=== PATIENT | female | born 1945 | race Caucasian/White ===

== ENCOUNTER 2017-07-22 18:28 | Emergency (ER) | payer SELFPAY ==
[2017-07-22 18:57] VITALS: BP 107/83; PULSE 91; RESP 16; TEMP 98.7; O2SAT 100
--- NOTE | 2017-07-22 19:11 | ED PDOC ---
Upper Extremity Pain/Injury Time Seen by Provider: 07/22/17 19:02 Chief Complaint (Nursing): Upper Extremity Problem/Injury Chief Complaint (Provider): Laceration to left 2nd digit History Per: Family History/Exam Limitations: no limitations Onset/Duration Of Symptoms: Hrs (x4) Current Symptoms Are (Timing): Still Present Additional Complaint(s): Catalina Dang is a 71-year-old [id number] female who presents to the emergency department for evaluation of laceration to her left index finger, sustained today. Family reports that patient was slicing ribs around 3PM when she accidentally cut herself. Patient was already seen at two urgent care centers and both centers told her to come to ED. Tetanus is not up to date. Of note, patient lives in [place] and is currently her visiting her family. Patient only speaks Vietnamese but her daughter at bedside is translating for patient. PMD: In [place] Past Medical History Reviewed: Historical Data, Nursing Documentation, Vital Signs Vital Signs: Last Vital Signs Temp 98.7 F 07/22/17 18:55 Pulse 91 H 07/22/17 18:55 Resp 16 07/22/17 18:55 BP 107/83 07/22/17 18:55 Pulse Ox 100 07/22/17 18:55 - Medical History PMH: No Chronic Diseases - Surgical History Other surgeries: Right shoulder surgery - Family History Family History: States: No Known Family Hx - Living Arrangements Living Arrangements: With Family - Social History Current smoker - smoking cessation education provided: No Alcohol: None Drugs: Denies - Immunization History Hx Tetanus Toxoid Vaccination: No (not sure of last booster) - Home Medications Home Medications: Ambulatory Orders Medication Instructions Recorded Cefadroxil [Duricef] 500 mg PO BID #28 cap 07/22/17 Ibuprofen [Motrin] 600 mg PO Q6 PRN #15 tab 07/22/17 oxyCODONE/Acetaminophen [Percocet 1 ea PO Q6 PRN #8 tab 07/22/17 5/325 mg Tab] - Allergies Allergies/Adverse Reactions: Allergies Allergy/AdvReac Type Severity Reaction Status Date / Time No Known Allergies Allergy Verified 07/22/17 18:55 Review of Systems ROS Statement: Except As Marked, All Systems Reviewed And Found Negative Musculoskeletal: Positive for: Other (laceration to left hand) Physical Exam - Reviewed Nursing Documentation Reviewed: Yes Vital Signs Reviewed: Yes - Physical Exam Appears: Positive for: Non-toxic, No Acute Distress Skin: Positive for: Normal Color Eye Exam: Positive for: Normal appearance Extremity: Positive for: Other (2 cm diagonal laceration noted to distal aspect of left index finger at DIP with exposure of nerve, tendons and bone noted, there is decreased distal sensation to affected digit, mild active bleeding; additional 2 cm superficial laceration noted to left third digit to dorsal aspect of DIP with no active bleeding or deep structure exposure) Neurologic/Psych: Positive for: Alert, Oriented - ECG O2 Sat by Pulse Oximetry: 100 (RA) Pulse Ox Interpretation: Normal - Other Rad Left hand x-ray X-Ray: Interpreted by Me, Viewed By Me X-Ray Interpretation: comminuted fracture distal aspect of left index finger Medical Decision Making Medical Decision Making: Initial Impression: 71 year old female with laceration to left hand Time: 19:10 Initial Plan: --X-ray of left hand --Tdap 0.5 ml IM --Ancef 1 gm IVPB --Discussed case with plastic surgeon, Dr. Simmons who will come to ED for lac repair Patient lives in [place] and is returning in 11 days. She doesn't have travel insurance and prefers to have repair completed in her country via hand specialist. Dr. Simmons did simple bedside closure of wound but explained to patient the importance of close follow-up given damage to bone, nerves and tendons in the affected digit, which as per Dr. Simmons, can be repaired at a later time if patient chooses. Patient and daughter at bedside verbalized understanding of the need for close follow-up and prefer to follow up when patient returns home to [place]. Prescriptions for ibuprofen, Percocet and Duricef provided as per Dr. Simmons. Scribe Attestation: Documented by Mable Brown, acting as a scribe for Rosa Crain PA-C Provider Scribe Attestation: All medical record entries made by the Scribe were at my direction and personally dictated by me. I have reviewed the chart and agree that the record accurately reflects my personal performance of the history, physical exam, medical decision making, and the department course for this patient. I have also personally directed, reviewed, and agree with the discharge instructions and disposition. Disposition - Clinical Impression Clinical Impression: Open fracture of finger, Requires a booster tetanus - Patient ED Disposition Is Patient to be Admitted: No Counseled Patient/Family Regarding: Studies Performed, Diagnosis, Need For Followup, Rx Given - Disposition Referrals: Jaiden Simmons MD [Medical Doctor] - Disposition: Routine/Home Disposition Time: 20:25 Condition: STABLE Additional Instructions: Take prescription medications as directed. Follow up as soon as possible with hand specialist. Prescriptions: Cefadroxil [Duricef] 500 mg PO BID #28 cap Ibuprofen [Motrin] 600 mg PO Q6 PRN #15 tab PRN Reason: Pain, Moderate (4-7) oxyCODONE/Acetaminophen [Percocet 5/325 mg Tab] 1 ea PO Q6 PRN #8 tab PRN Reason: Pain, Severe (8-10) Instructions: Diphtheria/Acellular Pertussis/Tetanus Booster Vaccine (Tdap) ( Injection), Finger Fracture (ED), Finger Laceration (ED) Forms: [employer] (Tajik)
[2017-07-22] MEDS ORDERED: Bupivacaine 0.5% Inj(30mL) IJ STA (19:13)
[2017-07-22] MEDS ORDERED: ceFAZolin IV 1 gm in Dextrose 1 GM/50 ML BAG IVPB ONE ×2 (19:31→20:00)
[2017-07-22] MEDS ORDERED: Lidocaine 1% Inj (20ml) ONE (19:31)
[2017-07-22] MEDS ORDERED: Povidone Iodine Topical 10% Sol ONE (19:34)
[2017-07-22] MEDS ORDERED: Lidocaine 1% Inj (20ml) IJ STA (19:59)
--- NOTE | 2017-07-23 13:16 | RAD ---
PROCEDURE: Left Hand Radiographs. HISTORY: trauma COMPARISON: None. FINDINGS: BONES: Comminuted oblique intra-articular fracture base of 2nd distal phalanx. No other fracture identified. JOINTS: Normal. No osteoarthritic changes. SOFT TISSUES: Normal. OTHER FINDINGS: None. IMPRESSION: Comminuted oblique intra-articular fracture base of 2nd distal phalanx.
--- NOTE | 2017-07-24 23:34 | OP ---
PROCEDURE DATE: 07/22/2017 SURGEON: Jaiden Simmons MD. PREOPERATIVE DIAGNOSES: As follows: 1. Left index finger 3-cm laceration. 2. Left index finger radial digital nerve laceration. 3. Left index finger open distal phalanx fracture. 4. Left index finger extensor digitorum communis partial tendon laceration. 5. Left middle finger 1.5-cm laceration. 6. Possible left middle finger extensor digitorum communis tendon laceration. POSTOPERATIVE DIAGNOSES: As follows: 1. Left index finger 3-cm laceration. 2. Left index finger radial digital nerve laceration. 3. Left index finger open distal phalanx fracture. 4. Left index finger extensor digitorum communis partial tendon laceration. 5. Left middle finger 1.5-cm laceration. 6. Possible left middle finger extensor digitorum communis tendon laceration. PROCEDURE PERFORMED: As follows: 1. Exploration of left middle finger penetrating wound. 2. Simple repair of 1.5-cm left middle finger laceration. 3. Exploration of left index finger penetrating wound. 4. Debridement of open fracture site of left index finger soft tissue. 5. Simple repair of 3-cm left index finger. 6. Closed treatment with manipulation of left index finger distal phalanx fracture. TYPE OF ANESTHESIA: Regional: 1. Left index finger radial digital nerve block. 2. Left index finger ulnar digital nerve block as well as local to left middle finger. INDICATION FOR PROCEDURE: As follows: This is a 71-year-old right hand dominant female visiting from [place] who is returning to [place] in 11 days who injured her left index finger and third finger while chopping ribs with a very strong knife. She presented with active bleeding to the Emergency Room after initially coming to the Emergency Room, leaving and going to an urgent care clinic and then returning to the Emergency Room. An x-ray done by the ER staff showed a displaced left index finger distal phalanx fracture just distal to its base, but not involving the DIP joint. On physical exam, the patient's left index finger showed paresthesias in the radial aspect of the volar tip. She had good feeling on the left index finger ulnaris tip. She had good feeling on the dorsum. She was able to flex and extend the left index finger DIP indicating grossly intact FDP and EDC tendon. She can flex the PIP indicating an intact FDF tendon. She had a positive Tinel's sign going proximally on the left index finger radial aspect. She had tenderness to the distal phalanx bone. The finger was completely wobbly and unstable and in terms of her left middle finger, there was 1.5-cm laceration on the dorsal radial aspect. She had normal neurovascular and tendon exam. There could have been an underlying extensor digitorum communis partial tendon laceration. I explained to the patient's daughter who spoke [place]ish that I would explore both wounds, irrigate the wounds and close them and splint them. I also warned them that she needs to have definitive repair of the tendon, the bone and the nerve within 2 weeks. Since the patient is going back to [place] in 11 days, I told that her options are to let me irrigate the wound, keep her on antibiotic, splint her and then have it done next week or she can have it done when she returns to [place], but it have to be done within 2 weeks. This was made very clear to the patient and her daughter and they understood this. DESCRIPTION OF PROCEDURE: As follows: A 1% lidocaine was used in the left index finger radial and ulnar digital nerve block as well as local in her left middle finger. After allowing sufficient time for the anesthetic to take effect, the wound was thoroughly irrigated with normal saline and dilute Betadine for several minutes. The area was prepped and draped in the usual clean and sterile manner. In terms of the left middle finger, I made the incision larger with a scissor. I explored the underlying extensor tendon, it was intact. I then closed the 1.5 cm laceration with a running 4-0 nylon suture. I then addressed the left index finger, I placed the tourniquet at the base of the finger which I removed at the end of the case. I made the incision larger to explore. The radial digital nerve and artery were lacerated. The extensor digitorum communis tendon was partially lacerated. There was an open distal phalanx fracture that was extremely unstable. I then closed the skin with a running 4-0 nylon suture as well as interrupted 4-0 nylon. I removed the tourniquet, placed Xeroform on both fingers, Manuelito wrap and splint on the left index finger. After doing this, hemostasis was achieved. I explained to the patient and the patient's daughter again that she needs to have definitive repair and stabilization of the left index finger open distal phalanx fracture as well as radial digital nerve repair and extensor digitorum communis was partially lacerated. This may need to be repaired again within 2 weeks or risk permanent deformity of the hand. The patient was sent home on 2 weeks of oral antibiotics and a finger splint and told to keep her arm elevated and to follow up with me in 2 days.. All questions were answered. Jaiden Simmons MD
== END 2017-07-22 22:19 | disposition home or self-care (01) ==
LOC: H.ER 18:28
DX: S61.211A Laceration without foreign body of left index finger without damage to nail, initial encounter (principal); S61.213A Laceration without foreign body of left middle finger without damage to nail, initial encounter; Z23 Encounter for immunization; S62.631A Displaced fracture of distal phalanx of left index finger, initial encounter for closed fracture; W26.0XXA Contact with knife, initial encounter; Y93.G1 Activity, food preparation and clean up
CPT/HCPCS: 12002; 26755; 73130; 90471; 90715; 96365; 99283; J0690